=== PATIENT | female | born 1975 | race Caucasian/White ===

== ENCOUNTER 2019-05-17 01:30 | Emergency (ER) | payer SELFPAY ==
[~2019-05-17] VITALS: Ht 162.6 cm; Wt 58.1 kg
[2019-05-17 01:43] VITALS: BP 125/77
--- NOTE | 2019-05-17 01:46 | NUR ---
PT SENT TO LOBBY TO WAIT FOR AVAILABLE BED.
[2019-05-17] MEDS ORDERED: IBUPROFEN 600 MG TAB PO ONE (01:50)
--- NOTE | 2019-05-17 02:15 | NUR ---
LABS DRAWN AND SENT TO LAB.
[2019-05-17 02:30] LABS: HEMATOCRIT 37.6 % (36-48); HEMOGLOBIN 12.8 g/dL (12.0-16.0); MEAN CORPUSCULAR HEMOGLOBIN 31 pg (27-31); MEAN CORPUSCULAR HGB CONC 34 g/dL (33-37); MEAN CORPUSCULAR VOLUME 91.5 fL (80-94); PLATELET COUNT (AUTO) 240 K/uL (140-450); RED BLOOD CELL COUNT(AUTO) 4.11 MIL/uL (4.20-5.40); RED CELL DISTRIBUTION WIDTH 12.3 % (11.6-13.7); WHITE BLOOD COUNT (AUTO) 10.9 K/uL (4.8-10.8)
[2019-05-17 02:39] LABS: APPEARANCE,URINE HAZY (CLEAR); BILIRUBIN,URINE NEGATIVE (NEGATIVE); BLOOD, URINE TRACE-L (NEGATIVE); COLOR,URINE YELLOW (YELLOW); LEUKOCYTE ESTERASE ,URINE NEGATIVE (NEGATIVE); NITRITE, URINE NEGATIVE (NEGATIVE); UGLUCOSE NEGATIVE (NEGATIVE)
[2019-05-17 02:52] LABS: ANION GAP 10.1 (8-16); CARBON DIOXIDE 25.2 mmol/L (21-32); CREATININE 0.8 mg/dL (0.6-1.3); POTASSIUM 3.3 mmol/L (3.5-5.1)
[2019-05-17 02:58] LABS: ALBUMIN 3.2 g/dL (3.4-5.0); TOTAL BILIRUBIN 0.3 mg/dL (0.0-1.0)
[2019-05-17 03:03] LABS: RBC,URINE 0-5 /HPF (0-5)
[2019-05-17 03:04] LABS: WBC,URINE 0-5 /HPF (0-5)
--- NOTE | 2019-05-17 03:05 | NUR ---
Patient being evaluated by physician at bedside.
[2019-05-17 03:11] LABS: LYMPHOCYTES % (MANUAL) 7 % (20-46); MONOCYTES % (MANUAL) 9 % (5-12)
[2019-05-17] MEDS ORDERED: NACL 0.9% 500 ML IV ONE (03:30)
[2019-05-17 04:20] VITALS: BP 121/78
--- NOTE | 2019-05-17 04:20 | NUR ---
DISCHARGE PAPERS GIVEN TO PT. AFEBRILE WITH VSS. NO C/O PAIN. INSTRUCTED TO F/U WITH PCP AND WHEN TO RETURN TO ER. PT VERBALLIZED UNDERSTANDING OF DC INSTRUCTIONS. ALL QUESTIONS ANSWERED.
== END 2019-05-17 04:20 | disposition home or self-care (01) ==
LOC: MED 01:30
DX: B34.9 Viral infection, unspecified (principal); F17.210 Nicotine dependence, cigarettes, uncomplicated
CPT/HCPCS: 36415; 71045; 80053; 81001; 85025; 87086; 87804; 99284; J7030